=== PATIENT | male | born 1950 | race Caucasian/White ===

== ENCOUNTER 2017-07-14 07:55 | Emergency (ER) | payer OTHER ==
--- NOTE | 2017-07-14 08:00 | UC ---
Upper Extremity HPI - HPI Summary HPI Summary: 66 year old male presents with complains of left hand pain secondary to blunt trauma. - History of Current Complaint Chief Complaint: UCUpperExtremity Stated Complaint: LEFT HAND INJURY Time Seen by Provider: 07/14/17 07:58 Hx Obtained From: Patient Onset/Duration: Sudden Onset Severity Initially: Moderate Severity Currently: Moderate - Allergies/Home Medications Allergies/Adverse Reactions: Allergies Allergy/AdvReac Type Severity Reaction Status Date / Time Amoxicillin [From Augmentin] Allergy Hives Verified 07/14/17 08:00 Clavulanic Acid Allergy Hives Verified 07/14/17 08:00 [From Augmentin] Home Medications: Home Medications Aspirin [Aspirin 81 MG TAB] 81 mg DAILY 07/14/17 [History Confirmed 07/14/17] DULoxetine DR CAP* [Cymbalta CAP*] 1 tab BID 07/14/17 [History Confirmed ] Insulin Aspart [Novolog] 8 units PRN 07/14/17 [History] Insulin GLARGINE(*) [Lantus(*)] 45 units BEDTIME 07/14/17 [History Confirmed ] Omeprazole CAP* [Prilosec CAP* 20 MG] 20 mg DAILY 07/14/17 [History Confirmed ] Rosuvastatin Calcium [Crestor] 5 mg DAILY 07/14/17 [History Confirmed 07/14/17] metFORMIN* [Glucophage 1000 MG TAB *] 1 tab BID 07/14/17 [History Confirmed ] predniSONE TAB* [Deltasone TAB*] 15 mg DAILY 07/14/17 [History Confirmed ] PMH/Surg Hx/FS Hx/Imm Hx Previously Healthy: Yes Review of Systems Constitutional: Negative Skin: Negative Eyes: Negative ENT: Negative Respiratory: Negative Cardiovascular: Negative Gastrointestinal: Negative Genitourinary: Negative Motor: Negative Neurovascular: Negative Musculoskeletal: Other: - left hand pain Neurological: Negative Psychological: Negative All Other Systems Reviewed And Are Negative: Yes Physical Exam Triage Information Reviewed: Yes Vital Signs Reviewed: Yes Eye Exam: Normal ENT Exam: Normal Dental Exam: Normal Neck exam: Normal Neck: Positive: 1 Respiratory Exam: Normal Cardiovascular Exam: Normal Abdominal Exam: Normal Musculoskeletal: Positive: Other: - left hand pain Neurological Exam: Normal Psychological Exam: Normal Skin Exam: Normal Upper Extremity Course/Dx - Differential Dx/Diagnosis Provider Diagnoses: land 5th metacarpal fx Discharge - Discharge Plan Condition: Stable Disposition: HOME Prescriptions: Acetaminop/Codeine 30 MG TAB* [Tylenol/Codeine 30 MG TAB*] 1 tab PO Q8H PRN #9 tab MDD 3 PRN Reason: Pain Patient Education Materials: Hand Sprain (ED), Boxer Fracture (ED) Referrals: Naren Kim MD [Medical Doctor] - Non Staff,Doctor [Primary Care Provider] -
[2017-07-14 08:09] VITALS: BP 143/97
--- NOTE | 2017-07-14 08:41 | RAD ---
INDICATION: Left hand injury. TECHNIQUE: 4 views of the left hand were obtained. FINDINGS: There is soft tissue swelling dorsal to the metacarpal bones. There is a transverse fracture of the distal metaphysis of the fifth metacarpal. The distal fragment demonstrates anterior angulation relative to the proximal fragment. No other fractures are seen. IMPRESSION: TRANSVERSE SLIGHTLY ANGULATED FRACTURE OF THE DISTAL FIFTH METACARPAL.
== END 2017-07-14 08:54 | disposition home or self-care (01) ==
LOC: UCCORT 07:55
DX: S62.307A Unspecified fracture of fifth metacarpal bone, left hand, initial encounter for closed fracture (principal); X58.XXXA Exposure to other specified factors, initial encounter
CPT/HCPCS: 99203; G0463